=== PATIENT | female | born 1960 | race Caucasian/White ===

== ENCOUNTER → 2017-07-10 | Day surgery (SDC) | payer BC ==
[2017-06-29 12:01] VITALS: BMI 45.0
--- NOTE | 2017-06-29 12:29 | PAT Medication Instructions ---
Service Date Jun 29, 2017. Current Home Medication List Alprazolam (Xanax), 1 MG PO TID Amitriptyline Hcl (Elavil), 50 MG PO HS Carvedilol (Coreg), 6.25 MG PO BID Celecoxib (CeleBREX), 200 MG PO QPM Cephalexin (Cephalexin), 1 TAB PO QID Cyclobenzaprine Hcl (Flexeril), 1 TAB PO HS Docusate Sodium (Docusate Sodium), 2 CAP PO HS Oxycodone/Acetaminophen 10MG/325MG (Percocet 10MG/325MG), 1 TAB PO TID PRN for N Medication Instructions For Your Scheduled Surgery - Check with surgeon for instructions: Celecoxib (CeleBREX), 200 MG PO QPM - Take the following medications the morning of surgery with a sip of water: Oxycodone/Acetaminophen 10MG/325MG (Percocet 10MG/325MG), 1 TAB PO TID PRN for N (okay to take up to 4 hours prior to surgery if needed) Cephalexin (Cephalexin), 1 TAB PO QID Carvedilol (Coreg), 6.25 MG PO BID Alprazolam (Xanax), 1 MG PO TID - Take the following medications as scheduled the night before surgery: Oxycodone/Acetaminophen 10MG/325MG (Percocet 10MG/325MG), 1 TAB PO TID PRN for N (if needed) Cyclobenzaprine Hcl (Flexeril), 1 TAB PO HS Docusate Sodium (Docusate Sodium), 2 CAP PO HS Cephalexin (Cephalexin), 1 TAB PO QID Carvedilol (Coreg), 6.25 MG PO BID Alprazolam (Xanax), 1 MG PO TID Amitriptyline Hcl (Elavil), 50 MG PO HS If you have any questions please call us at [phone] or [phone] or [phone]
[2017-06-29 13:35] LABS: BASO % 0.7 %; BASO ABS # 0.05 K/uL (0-0.2); EOS % 4.4 %; EOS ABS # 0.34 K/uL (0-0.5); HEMATOCRIT 39.7 % (37-47); HEMOGLOBIN 12.7 g/dL (12.0-16.0); IG# 0.01 K/uL (0.00-0.02); LYMPH % 21.4 %; LYMPH ABS # 1.64 K/uL (1.2-3.4); MEAN CELL VOLUME 92.1 fL (80-100); MEAN CORPUSCULAR HEMOGLOBIN 29.5 pg (25-34); MONO % 6.7 %; MONO ABS # 0.51 K/uL (0.11-0.59); NEUT % 66.7 %; NEUT ABS # 5.11 K/uL (1.4-6.5); PLATELET COUNT 197 K/uL (130-400); RED CELL DISTRIBUTION WIDTH CV 14.6 % (11.5-14.5); RED CELL DISTRIBUTION WIDTH SD 49.8 fL (36.4-46.3); WHITE BLOOD COUNT 7.66 K/uL (4.8-10.8)
[2017-06-29 13:57] LABS: CALCIUM 8.7 mg/dl (8.5-10.1); CREATININE 0.62 mg/dl (0.60-1.20); POTASSIUM 4.2 mmol/L (3.5-5.1)
[~2017-07-10] VITALS: Ht 157.5 cm; Wt 113.0 kg
[~2017-07-10] MED LIST: ACETAMINOPHEN 1000 MG/100 ML IV IV ONE; ACETAMINOPHEN 325 MG TAB PO PRN; ALPR1TAB3 PO; AMT50 PO; ATROPINE SULFATE 0.1 MG/ML 5ML SYR IV PRN; BACITRACIN 50000 UNIT VIAL ONE; BACITRACIN OINT 15 GM TUBE ONE; CARV6.252 PO; CARVEDILOL 6.25 MG TAB PO SCH; CEPH500T PO; CLB/200 PO; COCAINE 4% 1ML SYR EXT ONE; CYCL10TA6 PO; DEXAMETHASONE SOD INJ 4 MG/ML VIAL ONE; DOCU100C31 PO; ENOXAPARIN 40 MG/0.4 ML SYR SQ SCH; EpHEDrine SULFATE INJ 50 MG/ML AMP IV PRN; EpHEDrine SULFATE INJ 50 MG/ML AMP ONE; FENTANYL CITRATE INJ 50 MCG/1 ML 2 ML VIAL IV ONE; FENTANYL CITRATE INJ 50 MCG/1 ML 2 ML VIAL IV PRN; FENTANYL CITRATE INJ 50 MCG/1 ML 2 ML VIAL ONE; GLYCOPYRROLATE INJ 0.2 MG/ML VIAL ONE; HYDROCODONE/ACETAMOPHEN 5/325MG TAB PO PRN; HYDROmorphone INJ 1 MG/ML SYR IV PRN; HydrALAZINE HCL 20 MG/ML VIAL IV. STA; LABETALOL HCL IV 5 MG/ML 20ML IV ONE; LACTATED RINGER'S 1000ML 1,000 ML IV SCH; LIDOCAINE HCL 2% 2 ML VIAL (20MG/ML) ONE; LIDOCAINE/EPINEPHRINE 1% 20 ML VIAL ONE; LORAZEPAM 2 MG/ML 1 ML VIAL IV PRN; LORAZEPAM 2 MG/ML 1 ML VIAL ONE; LORAZEPAM INJ 0.5 MG in SYRINGE 0.25 ML IV PRN; MIDAZOLAM HCL 1 MG/ML 2ML VIAL ONE; NEOSTIGMINE METHYLSULFATE 5 MG/5 ML SYR ONE; ONDANSETRON INJ 2 MG/ML 2 ML VIAL IV PRN; ONDANSETRON INJ 2 MG/ML 2 ML VIAL ONE; OXYC-106 PO; OXYMETAZOLINE HCL 0.05% NA SPR 15 ML BTL ONE; PHENYLEPHRINE HCL INJ 10 MG/ML VIAL ONE; PROPOFOL IV EMULSION 10 MG/ML 20 ML VIAL IV ONE; SALINE NASAL GEL (AYR) 14.1 GM TUBE ONE; SUCCINYLCHOLINE CHLORIDE 20 MG/ML 10 ML VIAL IV ONE; THROMBIN 5000 UNITS KIT ONE
[2017-07-10 08:01] VITALS: BP 157/72; PULSE 62; TEMP 36.5; O2SAT 94; Ht 157.5 cm; Wt 113.0 kg
--- NOTE | 2017-07-10 09:24 | History & Physical Bridge Note ---
H&P Re-Evaluation Bridge Note: I have examined the patient, reviewed the History & Physical and in the interval since the performance of the History & Physical I have noted the following changes of clinical significance: No changes noted
--- NOTE | 2017-07-10 12:52 | [facility] Post Operative Brief Note ---
Immediate Operative Summary Operative Date Jul 10, 2017. Pre-Operative Diagnosis Chronic pansinusitis, Hypertrophy of both inferior nasal turbinates, deviated nasal septum Post-Operative Diagnosis Same Procedure(s) Performed Endoscopic Total Ethmoidectomies, Sphenoidotomy with Removal Tissue, Maxillary Antrostomies with Removal Contents and Balloon Frontal Sinus Surgery with Image Guidance, and Bilateral Inferior Tubinate Reduction Surgeon Dr Miller Primary Care Sales Representative Surgeon(s) none Estimated Blood Loss 100ml Findings A) Pus in the right frontal recess, right maxillary sinus, and right ethmoid sinuses. B) Hypertrophied mucosa in all sinuses. C) Bilateral inferior turbinate hypertrophy. D) Although there was a slight septal deviation, no septoplasty was needed for access. Specimens a. anterior portion of middle turbinate bilateral b. contents right ethmoid c. contents right maxillary sinus d. contents Left ethmoid e contents Left sphenoid Routine and anaerobic culture Right middle meatus/nasal Anesthesia General via ETT Complication(s) None Disposition Recovery Room / PACU
--- NOTE | 2017-07-10 12:58 | Discharge Instructions ---
Discharge Instructions Date of Service Jul 10, 2017. Admission Reason for Admission: Chronic Pansinusitis, Hypertrophy of Both Inferior Discharge Discharge Diagnosis / Problem: Chronic pansinusitis, turbinate hypertrophy. Discharge Goals Goal(s): Decrease discomfort Activity Recommendations Activity Limitations: as noted below Lifting Limitations: no more than 10 pounds Exercise/Sports Limitations: none May Resume Sexual Activity: after one week Shower/Bathe: tomorrow Driving or Machine Use: No driving while taking a narcotic. . Current Hospital Diet Patient's current hospital diet: Discharge Diet Recommended Diet: Regular Diet Procedures Procedures Performed: Endoscopic Total Ethmoidectomies, Sphenoidotomy with Removal Tissue, Maxillary Antrostomies with Removal Contents and Balloon Frontal Sinus Surgery with Image Guidance, and Bilateral Inferior Tubinate Reduction Pending Studies Studies pending at discharge: no Medical Emergencies . Who to Call and When: Medical Emergencies: If at any time you feel your situation is an emergency, please call 911 immediately. . Non-Emergent Contact Non-Emergency issues call your: Specialist Call Non-Emergent contact if: temperature is above 101 . . "Provider Documentation" section prepared by Kadeem Miller. . VTE Core Measure Inpt VTE Proph given/why not?: SCD's
--- NOTE | 2017-07-10 14:00 | Anesthesiology Progress Note ---
Anesthesia Progress Note Date of Service Jul 10, 2017. Progress Notes Ms. Contreras had what appeared to be a routine sinus surgery by Dr. Miller. She had a very easy intubation with head in midline, neutral position and ETT was easily inserted after first attempt. Patient's head padded with a pillow and no extension was noted of her head or neck during surgery. Upon completion of the surgery, patient had stable hemodynamics and was breathing spontaneously. She was extubated easily and maintained her airway with supplemental oxygen via facemask. Upon further exam, patient was noted to not be moving her extremities. I did notice patient moved her upper body slightly on the stretcher and upon applying pressure to her left toe she moved her leg and stated that it hurt. Otherwise she didn't have much movement. She was brought to the PACU and we continued to examine her without much change in her neurological status. Attending surgeon was made aware and came to bedside immediately. Patient did endorse continued headache/nose pain but we decided to give IV tylenol as we wanted to avoid opioids to cloud our neurological exam of the patient. We decided to do a stat consult for the hospitalist service and they came to PACU to assess patient. Plan is to admit patient and likely do imaging of her head and neck to see if there is any abnormality noted. Patient is hemodynamically stable but we will continue to closely monitor her.
--- NOTE | 2017-07-10 14:03 | OPERATIVE REPORT ---
DATE OF OPERATION: 07/10/2017 PROCEDURE: 1. Nasal and sinus surgical endoscopy using image guidance Fusion Device, resulting in: A. Bilateral total ethmoidectomy (00550-79). B. Bilateral maxillary sinusotomy with removal of tissue (77260-90). C. Bilateral sphenoidotomy with removal of tissue(92684-67). D. Balloon dilatation of the frontal recess bilaterally (18815-23). 2. Bilateral inferior turbinate reduction (94436-15). SURGEON: Dr. Miller. BLOOD LOSS: 100 mL. IV FLUIDS: 1400 mL of crystalloid. ANESTHESIA: General via endotracheal tube. INDICATIONS FOR THE PROCEDURE: This is a 56-year-old woman with longstanding chronic sinusitis. This was confirmed by CT scan and she also had longstanding inferior nasal turbinate hypertrophy recalcitrant to maximal medical management. Given the failure of medical management, the patient opted for surgical intervention. A full informed consent including the indication, risks, benefits, and alternatives was provided in a relaxed office setting. There was an opportunity for questions and answers. SPECIMENS SENT: 1. Anterior portion of the inferior turbinates bilaterally. 2. Contents right ethmoid. 3. Contents right maxillary sinus. 4. Contents left sphenoid sinus. 5. Contents left ethmoid sinus. SPONGE AND NEEDLE COUNT: Was correct at the end the case. COMPLICATIONS: None. SURGICAL FINDINGS: A) Pus in the right frontal recess, right middle meatus, right maxillary sinus , and right ethmoids sinus. B) Thickened mucosa in all sinuses entered with greatest in the right maxillary and right ethmoid sinuses. C) Bilateral Inferior turbinate hypertrophy. D) Septal deviation to the right superiorly that did not require septoplasty. DESCRIPTION OF PROCEDURE: The patient had an uneventful endotracheal intubation. After this, the table was placed in slight reverse Trendelenburg. The inferior turbinates, middle turbinates, and the anterior ethmoidal bullae were injected with a total of 9 mL of 1% lidocaine with 1:100,000 parts epinephrine using a control syringe and 25 gauge needle. The middle meatus was packed with neurosurgical pledgets soaked in 4% cocaine using a total of 4 ml, and the rest of the nose was packed with neurosurgical pledgets soaked in 0.05% oxymetazoline. The oropharynx was packed with a vaginal pack soaked in saline. 5 minutes was allowed for vasoconstriction while I scrubbed. Also, during this time period before scrubbing, the fusion device was readied. After the above, the packing of the nose was removed. It was determined that the deviation of the septum was not severe enough to warrant a septoplasty. Therefore, septoplasty was not performed. Attention was directed to the inferior turbinates, the inferior turbinates had the lateral mucosa removed using a 4.3 Satago straight cutting microdebrider. Also, bone was removed from each inferior turbinate using the same device. After this, the Arthrocare coblation plasma want was used on a setting of 6 to make three submucosal passes on the medial aspect of each inferior turbinate throughout its entire length with each pass lasting 10 seconds. The wand was draped in Merino gel before each past. Also, the wand had 1 pass on the lateral surface of each inferior turbinate. At this point, the inferior turbinates were nicely reduced in size. Attention was directed to the middle turbinates bilaterally. They were clamped with a curved tonsillar hemostat. Turbinate scissor was used to cut on the crush line. The anterior portion of each middle turbinate were removed and sent to the lab. After this, the ethmoidectomies were done and the rest of the procedure was done using surgical loops, surgical headlight, and 30 degree endoscope interchangeably. Total ethmoidectomies were done bilaterally using the 4.3 straight cutting microdebrider. Utility Aide tissue was sent from each ethmoid sinus. The difference of the 2 sinuses is there was greater hypertrophy of tissue in the right ethmoid than the left and there was pus in the right ethmoid as well. The maxillary sinus procedure was done by first entering the maxillary sinus with curved suction tip using navigation then backbiting forceps was used to widely open up the sinusotomy site. There was pus in the right maxillary sinus. This was suctioned away with the curved suction tip. After this, a curved microdebrider was used to remove hypertrophied mucosa from the right maxillary sinus. Additionally, some tissue from the sinus was sent for specimen. The anterior face of the right sphenoid was confirmed and this was entered using straight suction and then opened using the microdebrider. Left sphenoidotomy was done in a similar technique except tissue was sent for specimen as there was far more tissue on the left sphenoid sinus than the right. The left maxillary sinus had less mucosal hypertrophy than the right and after using a back biter to widely open the sinusotomy site, a curved microdebrider was introduced. No specimen was sent from the left maxillary sinus. At this point, bilateral ethmoidectomies, maxillary sinusotomies with tissue removal, and sphenoidotomies bilaterally tissue removal had been completed. It was now time to address the frontal recess. This was probed with frontal recess probe, and positioning confirmed via Fusion apparatus. After this, the 7 mm [employer] frontal sinus balloon was positioned as confirmed by Fusion apparatus and the frontal sinus recess was balloon dilated bilaterally. This effected a dramatic improved in the frontal recess size. Minimal nuisance bleeding was stopped with suction electrocautery. The ethmoid defect was packed with NasoPore soaked in bacitracin solution. A Telfa with a straw inside was used to pack the nose so the patient would be able to breathe after surgery. This Telfa had been saturated with bacitracin ointment. At this point, a mustache dressing was applied. The oropharyngeal packing was removed and there was copious irrigation of the oropharynx to make sure there was no blood coming down from the nose and the nasopharynx, into the oropharynx. This was removed using saline and Yankauer suction. A bite block was placed so she would not clamp down on the endotracheal tube and the procedure was completed. The patient was allowed to wake up later and transported to recovery. I attest to the content of the Intraoperative Record and any orders documented therein. Any exceptions are noted below. JEFF
--- NOTE | 2017-07-10 14:25 | Anesthesiology Progress Note ---
Anesthesia Progress Note Date of Service Jul 10, 2017. Progress Notes ICU has been also consulted and are at bedside now examining patient. Will take c-spine precautions and put patient in C-collar and plan for CT scan of head and neck. Patient continues to endorse inability to move extremities b/l and unable to feel sensation. We did witness during this exam that she moved her right arm. Of note, patient does not have any facial asymmetry and she does stick her tongue out and it is midlight. Patient did have slight pupil asymmetry that was noted in preop and this has not changed after surgery. Will continue to follow.
--- NOTE | 2017-07-10 14:55 | DIAGNOSTIC IMAGING REPORT ---
HEAD WITHOUT CONTRAST (CT) CLINICAL HISTORY: 56 years-old Female with r/o cva. Acute strokelike symptoms TECHNIQUE: Multiple axial CT images of the head were obtained without contrast. A dose lowering technique was utilized adhering to the principles of ALARA. CT DOSE: 1203.03 mGy.cm COMPARISON: CT cervical spine of same day. FINDINGS: No acute intracranial hemorrhage, midline shift, intracranial mass, hydrocephalus, territorial ischemia or abnormal extra-axial collection. The calvarium is intact. The mastoid air cells, and middle ear cavities are clear. Moderate secretions are noted within the nasopharynx, and nasal turbinates with extensive secretions seen within the ethmoid air cells and frontal sinuses with moderate mucosal thickening and air-fluid levels of the maxillary sinuses. Bubbly secretions with air-fluid levels noted within the sphenoid sinuses. Soft tissues are unremarkable. Orbits are symmetric. Prior bilateral cataract repair. IMPRESSION: 1. No acute intracranial abnormality. 2. Extensive paranasal sinus disease. The above report was generated using voice recognition software. It may contain grammatical, syntax or spelling errors. Electronically signed by: Piero Darling M.D. 07/10/2017 2:54 PM Dictated Date/Time: 07/10/2017 2:51 PM
--- NOTE | 2017-07-10 14:57 | DIAGNOSTIC IMAGING REPORT ---
CT SCAN OF THE CERVICAL SPINE CLINICAL HISTORY: Bilateral upper and lower extremity weakness status post ENT surgery. COMPARISON STUDY: No priors. TECHNIQUE: CT scan of the cervical spine is performed from the skull base to the upper thoracic spine. Images are reviewed in the axial, sagittal, and coronal planes. IV contrast was not administered for this examination. A dose lowering technique was utilized adhering to the principles of ALARA. FINDINGS: Skeletal structures: The skeletal structures are osteopenic. There is no evidence of fracture or subluxation involving the cervical spine. Vertebral body height is maintained. There is minimal anterolisthesis at C3-C4. Alignment is otherwise preserved. There is straightening of the cervical lordosis with reversal centered at C4-C5. There are postoperative changes from anterior fusion seen at C6-C7. The orthopedic hardware appears intact and there is near complete bony incorporation at these levels. The odontoid process and lateral masses are intact. The atlantoaxial articulation is preserved noting productive degenerative change. The spinous processes appear intact. There is moderate multilevel cervical spondylosis. Uncovertebral and facet arthropathy contribute sterile foraminal narrowing at several levels. Intervertebral discs: There has been discectomy at C6-C7. Moderate to advanced disc space narrowing is seen at C4-C5 and C5-C6. Central canal: Posterior disc osteophyte complexes at C4-C5 and C5-C6 likely contribute to acquired compromise of the central canal.. Soft tissues: The prevertebral and paraspinous soft tissues are within normal limits. Calvarium: The visualized calvarium at the skull base appears intact. Brain parenchyma: Partially visualized brain parenchyma the skull base is within normal limits. Sinuses and mastoids: Fluid/hemorrhage is seen within the partially imaged maxillary and sphenoid sinuses. The mastoid air cells are well pneumatized. Lung apices: Clear as visualized. IMPRESSION: 1. No acute bony abnormality is seen involving the cervical spine. 2. Osteopenia with spondylotic and postoperative changes as above. Electronically signed by: Chris Marcos M.D. 07/10/2017 2:56 PM Dictated Date/Time: 07/10/2017 2:53 PM
--- NOTE | 2017-07-10 16:15 | Progress Note ---
Progress Note Date of Service Jul 10, 2017. 0821 Progress Note Electronically copied hand written note from anesthesia record for legibility Pt. SV RR 18 VT 650. Extubated to and tolerated well. Pt complaining of feeling numb. Neuro eval done immediately and Dr. Garcia/ Dr. Miller notified. Dr. Garcia into room to evaluate pt. Neuro assessment done. Pt was holding R/L arm up against light gravity and moved legs to noxious stimuli B/L. Pt still stating she felt numb. Airway Patent and VSS --> PACU. Dr Miller at bedside to evaluate pt. No facial asymmetry, PERRLA (no changes to preop pupils) , pt talking, all VSS. Pt stuck tongue out midline to command. Pt alert awake, and oriented to situation. Awaiting input from internal medicine. Pt VSS, airway patent.
--- NOTE | 2017-07-10 16:32 | Anesthesiology Progress Note ---
Anesthesia Post Op Note Date & Time Jul 10, 2017 at 16:28 Vital Signs Pain Intensity: 7 Vital Signs Past 12 Hours Date Time Temp Pulse Resp B/P (MAP) Pulse Ox O2 Delivery O2 Flow Rate FiO2 07/10/17 14:58 185/101 07/10/17 14:57 67 14 95 07/10/17 14:57 67 14 07/10/17 14:32 67 17 98 07/10/17 14:32 65 17 07/10/17 14:31 173/104 07/10/17 14:29 61 14 07/10/17 14:29 59 14 96 07/10/17 14:26 176/92 07/10/17 14:24 61 13 07/10/17 14:24 61 13 98 07/10/17 14:21 187/104 07/10/17 14:19 60 16 97 07/10/17 14:19 60 16 07/10/17 14:18 58 13 97 07/10/17 14:18 58 13 07/10/17 14:16 180/89 07/10/17 14:13 59 11 96 07/10/17 14:13 58 11 07/10/17 14:11 160/96 07/10/17 14:08 58 15 07/10/17 14:08 58 15 94 07/10/17 14:06 191/83 07/10/17 14:03 62 13 07/10/17 14:03 64 13 97 07/10/17 14:01 176/107 07/10/17 13:58 57 14 07/10/17 13:58 58 14 97 07/10/17 13:56 192/100 07/10/17 13:53 56 14 97 07/10/17 13:53 58 14 07/10/17 13:51 191/91 07/10/17 13:48 54 16 98 07/10/17 13:48 55 16 07/10/17 13:46 175/96 07/10/17 13:43 59 13 97 07/10/17 13:43 60 13 07/10/17 13:41 189/96 07/10/17 13:38 62 18 100 07/10/17 13:38 61 18 07/10/17 13:36 178/115 07/10/17 13:33 56 15 100 07/10/17 13:33 56 15 07/10/17 13:31 197/92 07/10/17 13:28 61 16 100 07/10/17 13:28 60 16 07/10/17 13:26 188/105 07/10/17 13:23 58 8 100 07/10/17 13:23 55 8 07/10/17 13:21 175/95 07/10/17 13:18 59 12 100 07/10/17 13:18 59 12 07/10/17 13:16 168/86 07/10/17 13:13 63 13 100 07/10/17 13:13 63 13 07/10/17 13:11 191/112 07/10/17 13:08 62 16 100 07/10/17 13:08 61 16 07/10/17 13:07 187/117 07/10/17 13:04 182/106 07/10/17 13:03 59 12 98 07/10/17 13:03 36.4 59 16 182/106 (127) 100 Oxymask 10 07/10/17 13:03 58 12 07/10/17 08:01 36.5 62 18 157/72 (100) 94 Room Air Notes Mental Status: alert / awake / arousable, participated in evaluation Pt Amnestic to Procedure: Yes Nausea / Vomiting: adequately controlled Pain: see Notes Airway Patency, RR, SpO2: stable & adequate BP & HR: stable & adequate Hydration State: stable & adequate Patient with surgical pain in nose/head that was treated with tylenol initially. Patient is going to MRI currently to r/o any neck/head pathology after CT scan failed to show any abnormalities that would explain her current symptoms. Will hold on treating pain with high dose opioids as to not interfere with further neurological exam but will defer to hospitalist service/ICU service as patient likely will be transferred out of PACU post-MRI. Prior to going to MRI, patient felt abdominal pressure and need to urinate and thakur was inserted as patient did not want to use bedpan. Will continue to monitor.
[2017-07-10 16:34] LABS: BASO % 0.2 %; BASO ABS # 0.02 K/uL (0-0.2); EOS % 0.4 %; EOS ABS # 0.03 K/uL (0-0.5); HEMATOCRIT 39.5 % (37-47); HEMOGLOBIN 12.9 g/dL (12.0-16.0); IG# 0.01 K/uL (0.00-0.02); MEAN CELL VOLUME 91.2 fL (80-100); MEAN CORPUSCULAR HEMOGLOBIN 29.8 pg (25-34); MEAN CORPUSCULAR HGB CONC 32.7 g/dl (32-36); MEAN PLATELET VOLUME 12.1 fL (7.4-10.4); MONO ABS # 0.08 K/uL (0.11-0.59); NEUT % 88.3 %; PLATELET COUNT 179 K/uL (130-400); RED CELL DISTRIBUTION WIDTH CV 14.4 % (11.5-14.5); WHITE BLOOD COUNT 8.04 K/uL (4.8-10.8)
[2017-07-10 16:48] LABS: PTT PATIENT 24.5 SECONDS (21.0-31.0)
[2017-07-10 16:57] LABS: ALBUMIN 3.4 gm/dl (3.4-5.0); CREATININE 0.57 mg/dl (0.60-1.20); POTASSIUM 3.6 mmol/L (3.5-5.1)
[2017-07-10 17:00] LABS: TOTAL PROTEIN 6.9 gm/dl (6.4-8.2)
--- NOTE | 2017-07-10 19:02 | DIAGNOSTIC IMAGING REPORT ---
MRI OF THE CERVICAL SPINE WITHOUT CONTRAST CLINICAL HISTORY: Acute quadriplegia following sinus surgery. COMPARISON: Cervical spine CT July 10, 2017. TECHNIQUE: Utilizing a 1.5 Torie magnet and dedicated coil, multiplanar, multiecho imaging of the cervical spine was performed without IV contrast. Post contrast imaging was ordered as well as an MRI of the neck. These studies could not be performed as the patient was unable to tolerate further imaging. FINDINGS: The patient is status post C6-C7 anterior discectomy and fusion. Reversal of the normal cervical lordosis is noted. This exam is mildly compromised by motion artifact. Cervical cord signal and caliber are normal. No intracanalicular mass or fluid collection is present. There is no marrow edema. There is no evidence for fracture within the cervical spine. Note is made of mild edema along the superior aspect of the spinous process of C7. Paravertebral soft tissues are otherwise unremarkable. Secretions within the pharynx are noted as well as secretions within the sphenoid sinuses. There is a possible 8 mm aneurysm of the right vertebral artery. Alternatively, this could reflect a tortuous vessel. C2-C3: The central canal is patent. The left neural foramen is mildly narrowed. C3-C4: The central canal is patent. There is severe narrowing of the left neural foramen due to uncovertebral hypertrophy and facet arthrosis. C4-C5: Mild central canal narrowing is noted due to posterior disc osteophyte complex. There is severe left and moderate right neural foraminal narrowing. C5-C6: Posterior disc osteophyte complex results in mild narrowing of the central canal. There is severe left neural foraminal stenosis. C6-C7: Central canal and neural foramen are patent. C7-T1: Central canal and neural foramen are patent. IMPRESSION: 1. Normal cervical cord signal and caliber. No intracanalicular mass or fluid collection. 2. Mild edema superior to the spinous process of C7. This is nonspecific but could reflect mild ligamentous injury of the interspinous ligament. 3. No evidence for cervical spine fracture. 4. Apparent dilatation of the intracranial portion of the right vertebral artery. This could reflect an 8 mm aneurysm . A follow-up nonemergent CTA of the head is recommended. 5. Status post C6-C7 anterior discectomy and fusion. 6. Moderate multilevel degenerative disc disease and facet arthrosis. Electronically signed by: Sonido Covington M.D. 07/10/2017 7:01 PM Dictated Date/Time: 07/10/2017 6:03 PM
--- NOTE | 2017-07-10 19:26 | Discharge Instructions ---
Discharge Instructions Date of Service Jul 10, 2017. Admission Reason for Admission: Chronic Pansinusitis, Hypertrophy of Both Inferior Discharge Discharge Diagnosis / Problem: Quadriplegia - Transverse Myelitis Discharge Goals Goal(s): Decrease discomfort, Improve function, Diagnostic testing, Therapeutic intervention Activity Recommendations Activity Level: Up Ad Tara . Additional Information Patient informed of condition: No Advance Directives: No DNR: No Level of Care: Other Communicable Disease: No Prognosis: Other Instructions / Follow-Up Instructions / Follow-Up Patient had a sinus surgery earlier today (07/10) Post-operatively could not move arms/legs; no sensation on arms/legs CT head and C-spine negative Plan for transfer to [place] under neurology service for possible transverse myelitis - possible neurosurgical evaluation Current Hospital Diet Patient's current hospital diet: Discharge Diet Recommended Diet: N/A Procedures Procedures Performed: Endoscopic Total Ethmoidectomies, Sphenoidotomy with Removal Tissue, Maxillary Antrostomies with Removal Contents and Balloon Frontal Sinus Surgery with Image Guidance, and Bilateral Inferior Tubinate Reduction Pending Studies Studies pending at discharge: no Medical Emergencies . Who to Call and When: Medical Emergencies: If at any time you feel your situation is an emergency, please call 911 immediately. . Non-Emergent Contact Non-Emergency issues call your: Primary Care Provider, Neurologist . . "Provider Documentation" section prepared by Raquel Crane. . Core Measure Problem Core Measures: None
--- NOTE | 2017-07-10 19:40 | History and Physical ---
History & Physical Date & Time of Service: Jul 10, 2017 at 19:28 Chief Complaint: Chronic Pansinusitis, Hypertrophy of Both Inferior Primary Care Physician: Panfilo Arreola M.D. History of Present Illness Source: patient, family, clinic records, hospital records This is a 56 year old female with a PMH of depression/anxiety, chronic pansinusitis, hypertrophy of nasal turbinates, deviated septum - presented for a routine sinus surgery. She was put under anesthesia, no complications during surgery. Post-operatively, patient stated she could not move her arms or legs and could not feel anything below the chin. She was complaining about headache and neck pain. After speaking with the patient's - he stated that she had neck surgery; cervical spine herniation surgery about 12 years prior. Had no issues after that surgery in regards to her neck. After examination, there was some babinski reflex, very difficult to obtain patellar reflex on both sides. head CT was performed, and any intracranial abnormality was ruled out. Patient was placed on a cervical collar. Cervical CT was done - no acute findings on that. MRI was ordered of the neck/spine - but patient became very agitated and stated she wanted to leave the hospital. She refused transfer to [facility]. Call made to neurosurgery in [place] who recommended a neurological evaluation first. Dr. Lui, neurology, called and recommended transfer. Dr. Mistry, neurology for [place] neurology accepted the patient - will life flight patient out. Patient's aware. Social History Smoking Status: Current Every Day Smoker Allergies Coded Allergies: No Known Allergies (Unverified , 06/29/17) Home Medications Scheduled Alprazolam (Xanax), 1 MG PO TID Amitriptyline Hcl (Elavil), 50 MG PO HS Carvedilol (Coreg), 6.25 MG PO BID Celecoxib (CeleBREX), 200 MG PO QPM Cephalexin (Cephalexin), 1 TAB PO QID Cyclobenzaprine Hcl (Flexeril), 1 TAB PO HS Docusate Sodium (Docusate Sodium), 2 CAP PO HS Scheduled PRN Oxycodone/Acetaminophen 10MG/325MG (Percocet 10MG/325MG), 1 TAB PO TID PRN for N Review of Systems Constitutional: No fever, No chills ENT: + unusual epistaxis, + nasal symptoms, + problem reported (+headache) Respiratory: No cough, No sputum, No wheezing, No shortness of breath, No dyspnea on exertion, No dyspnea at rest, No hemoptysis Cardiovascular: No chest pain, No orthopnea, No edema, No palpitations Abdomen: No pain, No nausea, No vomiting, No diarrhea, No constipation Musculoskeletal: + joint pain (cervical neck) Neurologic: + paralysis, + weakness, + problem reported, No memory loss Psychiatric: + depression symptoms, + anxiety, + insomnia (usually controlled with medications) Endocrine: No fatigue Hematologic / Lymphatic: No abnormal bleeding/bruising Integumentary: No rash Allergic / Immunologic: No environmental allergies, No seasonal allergies Physical Exam Vital Signs Date Time Temp Pulse Resp B/P (MAP) Pulse Ox O2 Delivery O2 Flow Rate FiO2 07/10/17 19:15 96 24 94 Room Air 07/10/17 19:00 100 20 93 Room Air 07/10/17 18:45 99 17 94 Room Air 07/10/17 18:30 99 19 189/108 (139) 92 Room Air 07/10/17 18:15 99 16 177/104 (131) 95 Room Air 07/10/17 18:00 112 21 221/127 (166) 100 Room Air 07/10/17 17:45 107 32 192/151 (108) 94 Room Air 07/10/17 16:11 176/89 07/10/17 16:09 73 18 95 07/10/17 16:09 73 18 07/10/17 16:06 162/86 07/10/17 16:04 70 13 96 07/10/17 16:04 70 13 07/10/17 16:01 165/98 07/10/17 15:59 77 16 96 07/10/17 15:59 77 16 07/10/17 15:56 162/99 07/10/17 15:54 75 15 97 07/10/17 15:54 75 15 07/10/17 15:51 187/107 07/10/17 15:49 75 15 97 07/10/17 15:49 74 15 07/10/17 15:46 189/101 07/10/17 15:44 72 12 07/10/17 15:44 73 12 96 07/10/17 15:41 186/107 07/10/17 15:39 74 15 97 07/10/17 15:39 74 15 07/10/17 15:36 177/99 07/10/17 15:34 72 21 97 07/10/17 15:34 73 21 07/10/17 15:31 183/96 07/10/17 15:29 70 18 96 07/10/17 15:29 70 18 07/10/17 15:27 188/100 07/10/17 15:26 183/125 07/10/17 15:24 73 16 96 07/10/17 15:24 73 16 07/10/17 15:21 198/115 07/10/17 15:19 75 19 98 07/10/17 15:19 76 19 07/10/17 15:17 196/128 07/10/17 15:14 78 16 07/10/17 15:14 77 16 96 07/10/17 15:11 180/117 07/10/17 15:09 72 22 96 07/10/17 15:09 72 22 07/10/17 15:06 185/100 07/10/17 15:04 67 19 07/10/17 15:04 67 19 96 07/10/17 15:01 184/98 07/10/17 14:59 65 17 96 07/10/17 14:59 65 17 07/10/17 14:58 185/101 07/10/17 14:57 67 14 95 07/10/17 14:57 67 14 07/10/17 14:32 67 17 98 07/10/17 14:32 65 17 07/10/17 14:31 173/104 07/10/17 14:29 61 14 07/10/17 14:29 59 14 96 07/10/17 14:26 176/92 07/10/17 14:24 61 13 07/10/17 14:24 61 13 98 07/10/17 14:21 187/104 07/10/17 14:19 60 16 97 07/10/17 14:19 60 16 07/10/17 14:18 58 13 97 07/10/17 14:18 58 13 07/10/17 14:16 180/89 07/10/17 14:13 59 11 96 07/10/17 14:13 58 11 07/10/17 14:11 160/96 07/10/17 14:08 58 15 07/10/17 14:08 58 15 94 07/10/17 14:06 191/83 07/10/17 14:03 62 13 07/10/17 14:03 64 13 97 07/10/17 14:01 176/107 07/10/17 13:58 57 14 07/10/17 13:58 58 14 97 07/10/17 13:56 192/100 07/10/17 13:53 56 14 97 07/10/17 13:53 58 14 07/10/17 13:51 191/91 07/10/17 13:48 54 16 98 07/10/17 13:48 55 16 07/10/17 13:46 175/96 07/10/17 13:43 59 13 97 07/10/17 13:43 60 13 07/10/17 13:41 189/96 07/10/17 13:38 62 18 100 07/10/17 13:38 61 18 07/10/17 13:36 178/115 07/10/17 13:33 56 15 100 07/10/17 13:33 56 15 07/10/17 13:31 197/92 07/10/17 13:28 61 16 100 07/10/17 13:28 60 16 07/10/17 13:26 188/105 07/10/17 13:23 58 8 100 07/10/17 13:23 55 8 07/10/17 13:21 175/95 07/10/17 13:18 59 12 100 07/10/17 13:18 59 12 07/10/17 13:16 168/86 07/10/17 13:13 63 13 100 07/10/17 13:13 63 13 07/10/17 13:11 191/112 07/10/17 13:08 62 16 100 07/10/17 13:08 61 16 07/10/17 13:07 187/117 07/10/17 13:04 182/106 07/10/17 13:03 59 12 98 07/10/17 13:03 36.4 59 16 182/106 (127) 100 Oxymask 10 07/10/17 13:03 58 12 07/10/17 08:01 36.5 62 18 157/72 (100) 94 Room Air General Appearance: + severe distress (agitated, anxious - tearful throughout exam; unable to move arms/legs), + obese Head: normocephalic, atraumatic Eyes: normal inspection ENT: hearing grossly normal, + pertinent finding (nasal passages plugged with bandages post-operatively) Neck: supple Respiratory/Chest: chest non-tender, lungs clear, normal breath sounds, no respiratory distress, no accessory muscle use Cardiovascular: regular rate, rhythm, no edema, no murmur Neurologic/Psych: alert, + motor weakness (unable to feel or move arms/legs), + sensory deficit, + abnormal reflexes (diminished reflexes), + depressed affect Skin: normal color, warm/dry, no rash Lymphatic: no adenopathy Diagnostics Laboratory Results Results Past 24 Hours Test 07/10/17 16:11 Range/Units White Blood Count 8.04 4.8-10.8 K/uL Red Blood Count 4.33 4.2-5.4 M/uL Hemoglobin 12.9 12.0-16.0 g/dL Hematocrit 39.5 37-47 % Mean Corpuscular Volume 91.2 80-100 fL Mean Corpuscular Hemoglobin 29.8 25-34 pg Mean Corpuscular Hemoglobin Concent 32.7 32-36 g/dl Platelet Count 179 130-400 K/uL Mean Platelet Volume 12.1 7.4-10.4 fL Neutrophils (%) (Auto) 88.3 % Lymphocytes (%) (Auto) 10.0 % Monocytes (%) (Auto) 1.0 % Eosinophils (%) (Auto) 0.4 % Basophils (%) (Auto) 0.2 % Neutrophils # (Auto) 7.10 1.4-6.5 K/uL Lymphocytes # (Auto) 0.80 1.2-3.4 K/uL Monocytes # (Auto) 0.08 0.11-0.59 K/uL Eosinophils # (Auto) 0.03 0-0.5 K/uL Basophils # (Auto) 0.02 0-0.2 K/uL RDW Standard Deviation 49.0 36.4-46.3 fL RDW Coefficient of Variation 14.4 11.5-14.5 % Immature Granulocyte % (Auto) 0.1 % Immature Granulocyte # (Auto) 0.01 0.00-0.02 K/uL Prothrombin Time 10.0 9.0-12.0 SECONDS Prothromb Time International Ratio 1.0 0.9-1.1 Activated Partial Thromboplast Time 24.5 21.0-31.0 SECONDS Partial Thromboplastin Ratio 0.9 Sodium Level 138 136-145 mmol/L Potassium Level 3.6 3.5-5.1 mmol/L Chloride Level 108 98-107 mmol/L Carbon Dioxide Level 23 21-32 mmol/L Anion Gap 7.0 3-11 mmol/L Blood Urea Nitrogen 19 7-18 mg/dl Creatinine 0.57 0.60-1.20 mg/dl Est Creatinine Clear Calc Drug Dose 129.4 ml/min Estimated GFR () 119.3 Estimated GFR (Non- 102.9 BUN/Creatinine Ratio 33.9 10-20 Random Glucose 129 70-99 mg/dl Calcium Level 8.0 8.5-10.1 mg/dl Magnesium Level 2.2 1.8-2.4 mg/dl Total Bilirubin 0.3 0.2-1 mg/dl Aspartate Amino Transf (AST/SGOT) 18 15-37 U/L Alanine Aminotransferase (ALT/SGPT) 29 12-78 U/L Alkaline Phosphatase 99 45-117 U/L Total Protein 6.9 6.4-8.2 gm/dl Albumin 3.4 3.4-5.0 gm/dl Globulin 3.5 2.5-4.0 gm/dl Albumin/Globulin Ratio 1.0 0.9-2 Microbiology Results 07/10/17 Gram Stain - Final, Resulted 07/10/17 Bacterial Culture, Resulted Pending Diagnostic Radiology HEAD WITHOUT CONTRAST (CT) CLINICAL HISTORY: 56 years-old Female with r/o cva. Acute strokelike symptoms TECHNIQUE: Multiple axial CT images of the head were obtained without contrast. A dose lowering technique was utilized adhering to the principles of ALARA. CT DOSE: 1203.03 mGy.cm COMPARISON: CT cervical spine of same day. FINDINGS: No acute intracranial hemorrhage, midline shift, intracranial mass, hydrocephalus, territorial ischemia or abnormal extra-axial collection. The calvarium is intact. The mastoid air cells, and middle ear cavities are clear. Moderate secretions are noted within the nasopharynx, and nasal turbinates with extensive secretions seen within the ethmoid air cells and frontal sinuses with moderate mucosal thickening and air-fluid levels of the maxillary sinuses. Bubbly secretions with air-fluid levels noted within the sphenoid sinuses. Soft tissues are unremarkable. Orbits are symmetric. Prior bilateral cataract repair. IMPRESSION: 1. No acute intracranial abnormality. 2. Extensive paranasal sinus disease. CT SCAN OF THE CERVICAL SPINE CLINICAL HISTORY: Bilateral upper and lower extremity weakness status post ENT surgery. COMPARISON STUDY: No priors. TECHNIQUE: CT scan of the cervical spine is performed from the skull base to the upper thoracic spine. Images are reviewed in the axial, sagittal, and coronal planes. IV contrast was not administered for this examination. A dose lowering technique was utilized adhering to the principles of ALARA. FINDINGS: Skeletal structures: The skeletal structures are osteopenic. There is no evidence of fracture or subluxation involving the cervical spine. Vertebral body height is maintained. There is minimal anterolisthesis at C3-C4. Alignment is otherwise preserved. There is straightening of the cervical lordosis with reversal centered at C4-C5. There are postoperative changes from anterior fusion seen at C6-C7. The orthopedic hardware appears intact and there is near complete bony incorporation at these levels. The odontoid process and lateral masses are intact. The atlantoaxial articulation is preserved noting productive degenerative change. The spinous processes appear intact. There is moderate multilevel cervical spondylosis. Uncovertebral and facet arthropathy contribute sterile foraminal narrowing at several levels. Intervertebral discs: There has been discectomy at C6-C7. Moderate to advanced disc space narrowing is seen at C4-C5 and C5-C6. Central canal: Posterior disc osteophyte complexes at C4-C5 and C5-C6 likely contribute to acquired compromise of the central canal.. Soft tissues: The prevertebral and paraspinous soft tissues are within normal limits. Calvarium: The visualized calvarium at the skull base appears intact. Brain parenchyma: Partially visualized brain parenchyma the skull base is within normal limits. Sinuses and mastoids: Fluid/hemorrhage is seen within the partially imaged maxillary and sphenoid sinuses. The mastoid air cells are well pneumatized. Lung apices: Clear as visualized. IMPRESSION: 1. No acute bony abnormality is seen involving the cervical spine. 2. Osteopenia with spondylotic and postoperative changes as above. EKG Normal sinus rhythm Nonspecific ST and T wave abnormality Prolonged QT Impression Assessment and Plan This is a 56 year old female with a PMH of depression/anxiety, chronic pansinusitis, hypertrophy of nasal turbinates, deviated septum - presented for a routine sinus surgery. She was put under anesthesia, no complications during surgery. Post-operatively, patient stated she could not move her arms or legs and could not feel anything below the chin. She was complaining about headache and neck pain. After speaking with the patient's - he stated that she had neck surgery; cervical spine herniation surgery about 12 years prior. Had no issues after that surgery in regards to her neck. After examination, there was some babinski reflex, very difficult to obtain patellar reflex on both sides. head CT was performed, and any intracranial abnormality was ruled out. Patient was placed on a cervical collar. Cervical CT was done - no acute findings on that. MRI was ordered of the neck/spine - but patient became very agitated and stated she wanted to leave the hospital. She refused transfer to [facility]. Call made to neurosurgery in [place] who recommended a neurological evaluation first. Dr. Lui, neurology, called and recommended transfer. Dr. Mistry, neurology for [place] [facility] accepted the patient - will life flight patient out. Patient's aware. VTE Prophylaxis VTE Risk Assessment Done? Y/N: Yes Risk Level: Moderate Given or contraindicated: SCD's
--- NOTE | 2017-07-10 19:42 | Discharge Summary ---
Discharge Summary Date of Service Jul 10, 2017. Discharge Summary Admission Date: July 10, 2017 Discharge Date: Jul 10, 2017 Discharge Disposition: Acute care facility Principal Diagnosis: Acute Quadriplegia, r/o Transverse Myelitis Sensory Deficits Admission Information HPI (per Admitting provider): This is a 56 year old female with a PMH of depression/anxiety, chronic pansinusitis, hypertrophy of nasal turbinates, deviated septum - presented for a routine sinus surgery. She was put under anesthesia, no complications during surgery. Post-operatively, patient stated she could not move her arms or legs and could not feel anything below the chin. She was complaining about headache and neck pain. After speaking with the patient's - he stated that she had neck surgery; cervical spine herniation surgery about 12 years prior. Had no issues after that surgery in regards to her neck. After examination, there was some babinski reflex, very difficult to obtain patellar reflex on both sides. head CT was performed, and any intracranial abnormality was ruled out. Patient was placed on a cervical collar. Cervical CT was done - no acute findings on that. MRI was ordered of the neck/spine - but patient became very agitated and stated she wanted to leave the hospital. She refused transfer to [facility]. Call made to neurosurgery in [place] who recommended a neurological evaluation first. Dr. Lui, neurology, called and recommended transfer. Dr. Mistry, neurology for [place] [facility] accepted the patient - will life flight patient out. Patient's aware. Physical Exam (per Admitting): General Appearance: + severe distress (agitated, anxious - tearful throughout exam; unable to move arms/legs), + obese Head: normocephalic, atraumatic Eyes: normal inspection ENT: hearing grossly normal, + pertinent finding (nasal passages plugged with bandages post-operatively) Neck: supple Respiratory/Chest: chest non-tender, lungs clear, normal breath sounds, no respiratory distress, no accessory muscle use Cardiovascular: regular rate, rhythm, no edema, no murmur Neurologic/Psych: alert, + motor weakness (unable to feel or move arms/legs) , + sensory deficit, + abnormal reflexes (diminished reflexes), + depressed affect Skin: normal color, warm/dry, no rash Lymphatic: no adenopathy Hospital Course This is a 56 year old female with a PMH of depression/anxiety, chronic pansinusitis, hypertrophy of nasal turbinates, deviated septum - presented for a routine sinus surgery. She was put under anesthesia, no complications during surgery. Post-operatively, patient stated she could not move her arms or legs and could not feel anything below the chin. She was complaining about headache and neck pain. After speaking with the patient's - he stated that she had neck surgery; cervical spine herniation surgery about 12 years prior. Had no issues after that surgery in regards to her neck. After examination, there was some babinski reflex, very difficult to obtain patellar reflex on both sides. head CT was performed, and any intracranial abnormality was ruled out. Patient was placed on a cervical collar. Cervical CT was done - no acute findings on that. MRI was ordered of the neck/spine - but patient became very agitated and stated she wanted to leave the hospital. She refused transfer to [facility]. Call made to neurosurgery in [place] who recommended a neurological evaluation first. Dr. Lui, neurology, called and recommended transfer. Dr. Mistry, neurology for [place] [facility] accepted the patient - will life flight patient out. Patient's aware. Total time spent on discharge = 90 minutes This includes examination of the patient, discharge planning, medication reconciliation, and communication with other providers. Discharge Instructions Call made to neurosurgery in [place] who recommended a neurological evaluation first. Dr. Lui, neurology, called and recommended transfer. Dr. Mistry, neurology for [place] neurology accepted the patient - will life flight patient out. Patient's aware.
--- NOTE | 2017-07-10 19:58 | Anesthesiology Progress Note ---
Anesthesia Progress Note Date of Service Jul 10, 2017. Progress Notes The patient was signed out to the ICU team by Dr. Garcia. She was sent to MRI and was to go to the floor afterwards. The patient did not tolerate the MRI due to her anxiety and claustrophobia. The MRI was not completed and the patient was transferred back to the PACU. She was irate and belligerent upon arrival back to the PACU. The ICU team managed her in the PACU. Chris Powers and Dr. Prado evaluated the patient and ordered her fentanyl and lorazepam. She calmed down after receiving the medications. Chris Powers spoke to Dr. Lui over the phone and they agreed that she needed to have a neurosurgical evaluation. The patient refused to go to [facility] so the patient will go to [place]. The life flight team was called. The patient is being monitored by the PACU nurses while awaiting for the life flight. Her vitals are stable and she is awake and talking with her sister. The patient continues to state that she cannot move her arms or legs but has involuntary spasms in her legs.
--- NOTE | 2017-07-10 20:08 | Critical Care Consultation ---
Critical Care Consultation Date of Consultation: Jul 10, 2017. Attending Physician: Kadeem Miller M.D. Reason for Consultation: Neurological deficits status post sinus surgeries History of Present Illness Digital Media Director: Dr. Prado This is a 56-year-old female who was under the care of Dr. Kadeem Miller for Endoscopic Total Ethmoidectomies, Sphenoidotomy with Removal Tissue, Maxillary Antrostomies with Removal Contents and Balloon Frontal Sinus Surgery with Image Guidance, and Bilateral Inferior Tubinate Reduction. She did well through the surgery with no complications. She was then transferred to the postanesthesia care unit for recovery prior to being discharged home. At this time she was found to have neurological deficit to the upper and lower extremities. She was unable to move her extremities and had no sensation to pain. She was breathing adequately and was alert and oriented and able talk. She also complained of full bladder feeling and need to urinate but was unable to void. A straight cath was performed with adequate urine evacuation. The patient complained of no pain below her neck. She did complain of some neck pain and headache. I immediately asked nursing to place a c-collar and placed orders for CT scan of the head and neck. The patient was taken to the CT area and transferred appropriately from the letter to the scanning bed and a CT scan was performed of the head and neck without difficulty. The patient tolerated the procedure well. I then spoke with the radiologist's who indicated there was no acute finding on the CT scan. It was noted the patient had hardware which appear to be from an ACDF which reportedly was done at [facility] years ago. I then ordered an MRI with and without contrast of the cervical section as well as soft tissue. Patient was taken the MRI scanning area as soon as a bed was available. Scan was not able to be completed secondary to reported claustrophobia the patient. ct scan special procedures technologist reported she was writhing on the MRI table and screaming profanities. MRI staff finished the portion of the MRI they were completing and aborted the rest of imaging. I received a phone call from Erik shaffer me of what happened in the MRI area and reported immediately to the PACU area where the patient was unable to be consoled. She was reporting increased pain to her neck and head at that time and I ordered 50 g of IV fentanyl and 0.5 mg of lorazepam. She continued to complain of further pain so I ordered an additional 50 g of IV fentanyl. In discussion with her sister and her who are updated on her condition and inability to complete an MRI, I suggested transferred to a tertiary care facility for neurosurgery consult. Both were in agreement. Inasmuch is a patient of previous work at [facility] and surgery performed by Dr. Jiang from [facility], we initially began transfer procedure to [facility]. The patient then indicated that she had a preference to go to [facility]. A call was then placed to the transfer center and ultimately I spoke with Dr. Shirley Mistry from neurology who agreed to accept the patient in intensive care unit. Arrangements were then made to fly the patient with [employer]. The patient was seen in PACU by Dr. Prado who agreed with the treatment plan. Past Medical/Surgical History Medical Problems: Hypertension Depression/anxiety Chronic pain syndrome Surgical history: Unknown Family History Unable to be obtained secondary to patient condition Social History Smoking Status: Current Every Day Smoker Smokeless Tobacco Use: No Alcohol Use: none Drug Use: none Marital Status: Housing Status: lives with family Allergies Coded Allergies: No Known Allergies (Unverified , 06/29/17) Home Medications Scheduled Alprazolam (Xanax), 1 MG PO TID Amitriptyline Hcl (Elavil), 50 MG PO HS Carvedilol (Coreg), 6.25 MG PO BID Celecoxib (CeleBREX), 200 MG PO QPM Cephalexin (Cephalexin), 1 TAB PO QID Cyclobenzaprine Hcl (Flexeril), 1 TAB PO HS Docusate Sodium (Docusate Sodium), 2 CAP PO HS Scheduled PRN Oxycodone/Acetaminophen 10MG/325MG (Percocet 10MG/325MG), 1 TAB PO TID PRN for N Current Inpatient Medications Current Inpatient Medications Medications (Trade) Dose Ordered Sig/Rose Route Start Time Stop Time Status Last Admin Dose Admin Lactated Ringer's 1,000 ml @ 15 mls/hr Q24H IV 07/10/17 06:00 07/11/17 05:59 07/10/17 08:29 15 MLS/HR Ondansetron HCl (Zofran Inj) 4 mg Q6H PRN IV 07/10/17 13:00 08/09/17 12:59 Acetaminophen/ Hydrocodone Bitart (Grayson 5/325 Tab) 1 tab for moderate pain (... Q4H PRN PO 07/10/17 13:00 07/24/17 12:59 Enoxaparin Sodium (Lovenox Inj) 40 mg Q24H SQ 07/10/17 16:45 08/09/17 16:44 UNV Acetaminophen (Tylenol Tab) 650 mg Q4H PRN PO 07/10/17 16:45 08/09/17 16:44 Carvedilol (Coreg Tab) 6.25 mg BID PO 07/10/17 21:00 08/09/17 20:59 UNV Fentanyl Citrate (Fentanyl Inj) 50 mcg Q3H PRN IV 07/10/17 18:00 07/24/17 17:59 Lorazepam 0.5 mg/ Syringe 0.5 ml @ 0.5 mls/min Q6H PRN IV 07/10/17 18:00 08/09/17 17:59 Lorazepam (Ativan Inj) 0.5 mg Q6H PRN IV 07/10/17 18:45 08/09/17 18:44 Review of Systems A total of 12 systems was reviewed and is negative other than as listed above in the HPI Physical Exam Date Time Temp Pulse Resp B/P (MAP) Pulse Ox O2 Delivery O2 Flow Rate FiO2 07/10/17 19:30 100 18 16 Room Air 07/10/17 19:15 96 24 94 Room Air 07/10/17 19:00 100 20 93 Room Air 07/10/17 18:45 99 17 94 Room Air 07/10/17 18:30 99 19 189/108 (139) 92 Room Air 07/10/17 18:15 99 16 177/104 (131) 95 Room Air 07/10/17 18:00 112 21 221/127 (166) 100 Room Air 07/10/17 17:45 107 32 192/151 (108) 94 Room Air 07/10/17 16:11 176/89 07/10/17 16:09 73 18 95 07/10/17 16:09 73 18 07/10/17 16:06 162/86 07/10/17 16:04 70 13 96 07/10/17 16:04 70 13 07/10/17 16:01 165/98 07/10/17 15:59 77 16 96 07/10/17 15:59 77 16 07/10/17 15:56 162/99 07/10/17 15:54 75 15 97 07/10/17 15:54 75 15 07/10/17 15:51 187/107 07/10/17 15:49 75 15 97 07/10/17 15:49 74 15 07/10/17 15:46 189/101 07/10/17 15:44 72 12 07/10/17 15:44 73 12 96 07/10/17 15:41 186/107 07/10/17 15:39 74 15 97 07/10/17 15:39 74 15 07/10/17 15:36 177/99 07/10/17 15:34 72 21 97 07/10/17 15:34 73 21 07/10/17 15:31 183/96 07/10/17 15:29 70 18 96 07/10/17 15:29 70 18 07/10/17 15:27 188/100 07/10/17 15:26 183/125 07/10/17 15:24 73 16 96 07/10/17 15:24 73 16 07/10/17 15:21 198/115 07/10/17 15:19 75 19 98 07/10/17 15:19 76 19 07/10/17 15:17 196/128 07/10/17 15:14 78 16 07/10/17 15:14 77 16 96 07/10/17 15:11 180/117 07/10/17 15:09 72 22 96 07/10/17 15:09 72 22 07/10/17 15:06 185/100 07/10/17 15:04 67 19 07/10/17 15:04 67 19 96 07/10/17 15:01 184/98 07/10/17 14:59 65 17 96 07/10/17 14:59 65 17 07/10/17 14:58 185/101 07/10/17 14:57 67 14 95 07/10/17 14:57 67 14 07/10/17 14:32 67 17 98 07/10/17 14:32 65 17 07/10/17 14:31 173/104 07/10/17 14:29 61 14 07/10/17 14:29 59 14 96 07/10/17 14:26 176/92 07/10/17 14:24 61 13 07/10/17 14:24 61 13 98 07/10/17 14:21 187/104 07/10/17 14:19 60 16 97 07/10/17 14:19 60 16 07/10/17 14:18 58 13 97 07/10/17 14:18 58 13 07/10/17 14:16 180/89 07/10/17 14:13 59 11 96 07/10/17 14:13 58 11 07/10/17 14:11 160/96 07/10/17 14:08 58 15 07/10/17 14:08 58 15 94 07/10/17 14:06 191/83 07/10/17 14:03 62 13 07/10/17 14:03 64 13 97 07/10/17 14:01 176/107 07/10/17 13:58 57 14 07/10/17 13:58 58 14 97 07/10/17 13:56 192/100 07/10/17 13:53 56 14 97 07/10/17 13:53 58 14 07/10/17 13:51 191/91 07/10/17 13:48 54 16 98 07/10/17 13:48 55 16 07/10/17 13:46 175/96 07/10/17 13:43 59 13 97 07/10/17 13:43 60 13 07/10/17 13:41 189/96 07/10/17 13:38 62 18 100 07/10/17 13:38 61 18 07/10/17 13:36 178/115 07/10/17 13:33 56 15 100 07/10/17 13:33 56 15 07/10/17 13:31 197/92 07/10/17 13:28 61 16 100 07/10/17 13:28 60 16 07/10/17 13:26 188/105 07/10/17 13:23 58 8 100 07/10/17 13:23 55 8 07/10/17 13:21 175/95 07/10/17 13:18 59 12 100 07/10/17 13:18 59 12 07/10/17 13:16 168/86 07/10/17 13:13 63 13 100 07/10/17 13:13 63 13 07/10/17 13:11 191/112 07/10/17 13:08 62 16 100 07/10/17 13:08 61 16 07/10/17 13:07 187/117 07/10/17 13:04 182/106 07/10/17 13:03 59 12 98 07/10/17 13:03 36.4 59 16 182/106 (127) 100 Oxymask 10 07/10/17 13:03 58 12 07/10/17 08:01 36.5 62 18 157/72 (100) 94 Room Air GENERAL : Moderate acute distress EYES: No icterus, gaze conjugate. PERRL NOSE: No evidence of epistaxis. Packed both nares with no evidence of active bleeding MOUTH: No lesions or candidiasis. No bleeding in the posterior oropharynx. Tongue midline NECK: Supple. No palpable deformities of the cervical section. No stridor. No lymphadenopathy LUNGS: CTA B/L, no wheezes, rales or rhonchi HEART: Regular, rate controlled ABDOMEN: Soft, NT, ND, BS Present EXTREMITIES: No LE edema, pedal pulses intact. NEURO: A&OX3. No response to painful stimuli at nail beds of toes or fingers. Absent reflexes in upper and lower extremities. No hyperreflexia. Unable to grasp hands spontaneously move hands or feet. Toes are downgoing bilaterally. Laboratory Results Last 24 Hours Test 07/10/17 16:11 White Blood Count 8.04 K/uL Red Blood Count 4.33 M/uL Hemoglobin 12.9 g/dL Hematocrit 39.5 % Mean Corpuscular Volume 91.2 fL Mean Corpuscular Hemoglobin 29.8 pg Mean Corpuscular Hemoglobin Concent 32.7 g/dl Platelet Count 179 K/uL Mean Platelet Volume 12.1 fL Neutrophils (%) (Auto) 88.3 % Lymphocytes (%) (Auto) 10.0 % Monocytes (%) (Auto) 1.0 % Eosinophils (%) (Auto) 0.4 % Basophils (%) (Auto) 0.2 % Neutrophils # (Auto) 7.10 K/uL Lymphocytes # (Auto) 0.80 K/uL Monocytes # (Auto) 0.08 K/uL Eosinophils # (Auto) 0.03 K/uL Basophils # (Auto) 0.02 K/uL RDW Standard Deviation 49.0 fL RDW Coefficient of Variation 14.4 % Immature Granulocyte % (Auto) 0.1 % Immature Granulocyte # (Auto) 0.01 K/uL Prothrombin Time 10.0 SECONDS Prothromb Time International Ratio 1.0 Activated Partial Thromboplast Time 24.5 SECONDS Partial Thromboplastin Ratio 0.9 Sodium Level 138 mmol/L Potassium Level 3.6 mmol/L Chloride Level 108 mmol/L Carbon Dioxide Level 23 mmol/L Anion Gap 7.0 mmol/L Blood Urea Nitrogen 19 mg/dl Creatinine 0.57 mg/dl Est Creatinine Clear Calc Drug Dose 129.4 ml/min Estimated GFR () 119.3 Estimated GFR (Non- 102.9 BUN/Creatinine Ratio 33.9 Random Glucose 129 mg/dl Calcium Level 8.0 mg/dl Magnesium Level 2.2 mg/dl Total Bilirubin 0.3 mg/dl Aspartate Amino Transf (AST/SGOT) 18 U/L Alanine Aminotransferase (ALT/SGPT) 29 U/L Alkaline Phosphatase 99 U/L Total Protein 6.9 gm/dl Albumin 3.4 gm/dl Globulin 3.5 gm/dl Albumin/Globulin Ratio 1.0 Diagnostic Results MRI OF THE CERVICAL SPINE WITHOUT CONTRAST CLINICAL HISTORY: Acute quadriplegia following sinus surgery. COMPARISON: Cervical spine CT July 10, 2017. TECHNIQUE: Utilizing a 1.5 Torie magnet and dedicated coil, multiplanar, multiecho imaging of the cervical spine was performed without IV contrast. Post contrast imaging was ordered as well as an MRI of the neck. These studies could not be performed as the patient was unable to tolerate further imaging. FINDINGS: The patient is status post C6-C7 anterior discectomy and fusion. Reversal of the normal cervical lordosis is noted. This exam is mildly compromised by motion artifact. Cervical cord signal and caliber are normal. No intracanalicular mass or fluid collection is present. There is no marrow edema. There is no evidence for fracture within the cervical spine. Note is made of mild edema along the superior aspect of the spinous process of C7. Paravertebral soft tissues are otherwise unremarkable. Secretions within the pharynx are noted as well as secretions within the sphenoid sinuses. There is a possible 8 mm aneurysm of the right vertebral artery. Alternatively, this could reflect a tortuous vessel. C2-C3: The central canal is patent. The left neural foramen is mildly narrowed. C3-C4: The central canal is patent. There is severe narrowing of the left neural foramen due to uncovertebral hypertrophy and facet arthrosis. C4-C5: Mild central canal narrowing is noted due to posterior disc osteophyte complex. There is severe left and moderate right neural foraminal narrowing. C5-C6: Posterior disc osteophyte complex results in mild narrowing of the central canal. There is severe left neural foraminal stenosis. C6-C7: Central canal and neural foramen are patent. C7-T1: Central canal and neural foramen are patent. IMPRESSION: 1. Normal cervical cord signal and caliber. No intracanalicular mass or fluid collection. 2. Mild edema superior to the spinous process of C7. This is nonspecific but could reflect mild ligamentous injury of the interspinous ligament. 3. No evidence for cervical spine fracture. 4. Apparent dilatation of the intracranial portion of the right vertebral artery. This could reflect an 8 mm aneurysm . A follow-up nonemergent CTA of the head is recommended. 5. Status post C6-C7 anterior discectomy and fusion. 6. Moderate multilevel degenerative disc disease and facet arthrosis. Electronically signed by: Sonido Covington M.D. 07/10/2017 7:01 PM Dictated Date/Time: 07/10/2017 6:[address] SCAN OF THE CERVICAL SPINE CLINICAL HISTORY: Bilateral upper and lower extremity weakness status post ENT surgery. COMPARISON STUDY: No priors. TECHNIQUE: CT scan of the cervical spine is performed from the skull base to the upper thoracic spine. Images are reviewed in the axial, sagittal, and coronal planes. IV contrast was not administered for this examination. A dose lowering technique was utilized adhering to the principles of ALARA. FINDINGS: Skeletal structures: The skeletal structures are osteopenic. There is no evidence of fracture or subluxation involving the cervical spine. Vertebral body height is maintained. There is minimal anterolisthesis at C3-C4. Alignment is otherwise preserved. There is straightening of the cervical lordosis with reversal centered at C4-C5. There are postoperative changes from anterior fusion seen at C6-C7. The orthopedic hardware appears intact and there is near complete bony incorporation at these levels. The odontoid process and lateral masses are intact. The atlantoaxial articulation is preserved noting productive degenerative change. The spinous processes appear intact. There is moderate multilevel cervical spondylosis. Uncovertebral and facet arthropathy contribute sterile foraminal narrowing at several levels. Intervertebral discs: There has been discectomy at C6-C7. Moderate to advanced disc space narrowing is seen at C4-C5 and C5-C6. Central canal: Posterior disc osteophyte complexes at C4-C5 and C5-C6 likely contribute to acquired compromise of the central canal.. Soft tissues: The prevertebral and paraspinous soft tissues are within normal limits. Calvarium: The visualized calvarium at the skull base appears intact. Brain parenchyma: Partially visualized brain parenchyma the skull base is within normal limits. Sinuses and mastoids: Fluid/hemorrhage is seen within the partially imaged maxillary and sphenoid sinuses. The mastoid air cells are well pneumatized. Lung apices: Clear as visualized. IMPRESSION: 1. No acute bony abnormality is seen involving the cervical spine. 2. Osteopenia with spondylotic and postoperative changes as above. Electronically signed by: Chris Marcos M.D. 07/10/2017 2:56 PM HEAD WITHOUT CONTRAST (CT) CLINICAL HISTORY: 56 years-old Female with r/o cva. Acute strokelike symptoms TECHNIQUE: Multiple axial CT images of the head were obtained without contrast. A dose lowering technique was utilized adhering to the principles of ALARA. CT DOSE: 1203.03 mGy.cm COMPARISON: CT cervical spine of same day. FINDINGS: No acute intracranial hemorrhage, midline shift, intracranial mass, hydrocephalus, territorial ischemia or abnormal extra-axial collection. The calvarium is intact. The mastoid air cells, and middle ear cavities are clear. Moderate secretions are noted within the nasopharynx, and nasal turbinates with extensive secretions seen within the ethmoid air cells and frontal sinuses with moderate mucosal thickening and air-fluid levels of the maxillary sinuses. Bubbly secretions with air-fluid levels noted within the sphenoid sinuses. Soft tissues are unremarkable. Orbits are symmetric. Prior bilateral cataract repair. IMPRESSION: 1. No acute intracranial abnormality. 2. Extensive paranasal sinus disease. The above report was generated using voice recognition software. It may contain grammatical, syntax or spelling errors. Electronically signed by: Piero Darling M.D. 07/10/2017 2:54 PM Assessment & Plan ACUTE QUADRIPLEGIA CT of the cervical section with no acute findings MRI - limited study due to patient having claustrophobia - no significant findings to explain deficits No response to painful stimuli Patient does have some spontaneous movement of the right hand and left foot but no intentional movement No paradoxical chest wall movement - no indication for mechanical ventilation - oxygenating well on room air Received succinylcholine in the PACU prior to [address] Lui of neurology for consult. He returned call promptly and agreed the patient should probably be transferred to a tertiary care facility where neurosurgical services were available Call placed to [facility]. Dr. Shirley Mistry agreed to accept the patient to the ICU Arrangements made to transfer to [facility] Discussion regarding high-dose Decadron - defer administration to [facility] in the event that surgery is needed HYPERTENSION Patient with history of hypertension on carvedilol Systolic blood pressure in the 190s in the PACU Received labetalol 10 mg IV 2 Continue to monitor ANXIETY/DEPRESSION Home medications include: Alprazolam 1 mg by mouth 3 times a day Amitriptyline 50 mg by mouth daily at bedtime CHRONIC PAIN SYNDROME Home medications include: Celecoxib 200 mg by mouth every afternoon Cyclobenzaprine 10 mg by mouth at bedtime Percocet 10/325 mg by mouth 3 times a day as needed DVT PROPHYLAXIS No chemical prophylaxis secondary to surgery 07/10/17 CCT: 70 minutes. Thank you for including us in the care of this patient. Please refer to Dr. Prado's addendum for further recommendations. the pt was seen and examined independently, chart reviewed, ample time spent with the pt explaining to her the condition she went into,. in general she is 56 f, with hx of anxiety , radiculopathy, s/p ACDF and laminectomy, went into sinus surgery and developed motorsensory loss in her four ext post op. she did have mild pain in the neck, but full range of motion. no cranial reflexes loss, able to lift her right upper to me , no sensation to touch or pain in the lower ext, Bab sign is not responsive. normal reflexes in the brachial and patellar. labs and head ct were normal. the rest of her exam was normal, post op changes in the nostrils.. similar episodes occurred in the past where she was hearing and seeing but could not move. A/P; 1- agree with my colleague Chris Powers A/P. the pt should first be evaluated in a center where a dedicated neuro team available , the pt will be transferred to a tertiary care center. 2- although it is unusual presentation for spinal cord injury, it is worth while to persue imaging. 3- possible cataplexy as she described it as loss of muscle tone , the sensory loss does not fit the description unless narcolepsy occurred as well. 4- keep the neck collar on. 5- the pt preserved her diaphragm function, which argue agaist cervical spine injury. 6- after long discussion with the pt and her family protection specialist at the bed side, she agreed to transfer and all her questions been answered, and she was pleased with the care. discussed with the staff in details. CCT 60 min.
[2017-07-10 20:15] VITALS: PULSE 104; O2SAT 93
--- NOTE | 2017-08-20 06:06 | EDITING REQUIRED CODING QUERY ---
CODING QUERY To promote full compliance with coding requirements relating to patient care, provider participation is requested in all cases of marketing underwriter uncertainty. Please assist us with the question(s) below: Coding Question(s): Could you please clarify if the documented Acute Quadriplegia is a complication from the sinus procedure that was performed? ( ) Acute Quadriplegia - Complication from Sinus procedure (X ) Acute Quadriplegia - Not due to complication from Sinus procedure ( ) Other (Please specify) ( ) Unknown Physician's Response(s): Thank you Elenita Virgen Principal Diagnosis: "_that condition established after study, to be chiefly responsible for occasioning the admission of the patient to the hospital for care." Co-Existing Principal Diagnosis: "_when two or more diagnoses equally meet the criteria for principal diagnosis as determined by the circumstances of admission, diagnostic work up, and/or therapy provided, and the Alphabetic Index, Tabular List, or another coding guideline does not provide sequencing direction, any one of the diagnoses may be sequenced first." "When the physician has documented what appears to be a current diagnosis in the body of the record, but has not included the diagnosis in the final diagnostic statement, the physician should be asked whether the diagnosis should be added." ([facility] 2 QTR90. p3-4)
== END | disposition home or self-care (01) ==
LOC: C.ACU 07:12 → CANRESERV 17:34 → ENRESERV 17:34 → CANBEDREQ 19:57
PROVIDERS: ATTEND Otolaryngology
DX: G82.50 Quadriplegia, unspecified (principal); R29.818 Other symptoms and signs involving the nervous system; J32.4 Chronic pansinusitis; J34.3 Hypertrophy of nasal turbinates; J34.2 Deviated nasal septum; F41.9 Anxiety disorder, unspecified; I10 Essential (primary) hypertension; F32.9 Major depressive disorder, single episode, unspecified; F17.200 Nicotine dependence, unspecified, uncomplicated; E66.01 Morbid (severe) obesity due to excess calories; Z68.42 Body mass index [BMI] 45.0-49.9, adult; Z98.890 Other specified postprocedural states; Z79.899 Other long term (current) drug therapy; Z98.41 Cataract extraction status, right eye; Z98.42 Cataract extraction status, left eye; Z90.49 Acquired absence of other specified parts of digestive tract; Z90.89 Acquired absence of other organs